=== PATIENT | female | born 1990 | race Caucasian/White ===

== ENCOUNTER 2019-06-13 09:28 | Outpatient (CLI) | payer OTHER ==
[2019-06-13 10:31] VITALS: BP 110/67
--- NOTE | 2019-06-13 12:26 | Ultrasound Report ---
US OB bpp ea add exam, US OB limited INDICATION / CLINICAL INFORMATION: Vagnial spotting. COMPARISON: None available. FINDINGS: Single, viable intrauterine in cephalic presentation. heart rate 125. Placenta is anterior and free of the cervical os. Amniotic fluid volume is normal, with a fluid index of 7 cm. Biophysical profile score: breathing movements: 2 movements: 2 posture and tone: 2 Amniotic fluid volume: 2 Total BPP score: 8/8 IMPRESSION: 1. Viable intrauterine with biophysical profile score of 8. 2. No placental abnormalities identified. Signer Name: Kody Mathew MD Signed: 06/13/2019 12:21 PM Workstation Name: [id number]
== END 2019-06-13 12:43 | disposition home or self-care (01) ==
LOC: TRG 09:28
PROVIDERS: ATTEND Obstetrics & Gynecology
DX: O26.853 Spotting complicating pregnancy, third trimester (principal); Z3A.34 34 weeks gestation of pregnancy
CPT/HCPCS: 59025; 76815; 76819

== ENCOUNTER 2019-07-01 04:29 | Inpatient (IN) | payer OTHER ==
[2019-07-01] MEDS ORDERED: fentaNYL 100 MCG/2 ML INJ ONE (05:00)
[2019-07-01 05:29] LABS: Hematocrit 39.6 % (30.3-42.9); Hemoglobin 13.1 gm/dl (10.1-14.3); Mean Corpuscular HGB Conc 33 % (30-34); Mean Corpuscular Volume 89 fl (79-97); Platelet Count 202 K/mm3 (140-440); Red Blood Count 4.44 M/mm3 (3.65-5.03); Red Cell Distribution Width 13.3 % (13.2-15.2)
[2019-07-01] MEDS ORDERED: ONDANSETRON 4 MG/2 ML INJ IV PRN (05:52)
[2019-07-01] MEDS ORDERED: MAGNESIUM HYDROXIDE (MOM) ORAL LIQD UDC PO PRN (05:52)
[2019-07-01] MEDS ORDERED: PROMETHAZINE 25 MG RECT SUPP PR PRN (05:52)
[2019-07-01] MEDS ORDERED: WITCH HAZEL/ GLYCERIN PAD TP PRN (05:52)
[2019-07-01] MEDS ORDERED: PROMETHAZINE 25 MG TAB PO PRN (05:52)
[2019-07-01] MEDS ORDERED: diphenhydrAMINE 25 MG CAP PO PRN (05:52)
[2019-07-01] MEDS ORDERED: LANOLIN/ZINC/DIMETHICONE (LANSINOH) 7 GM TP PRN (05:52)
[2019-07-01] MEDS ORDERED: OXYTOCIN 10 UNIT/1 ML INJ IM ONE ×2 (05:55→06:04)
[2019-07-01] MEDS ORDERED: fentaNYL 100 MCG/2 ML INJ IV ONE (06:03)
--- NOTE | 2019-07-01 06:05 | Procedure Note ---
OB Delivery Note - Delivery Date of Delivery: 07/01/19 (0421, delivered in triage) Surgeon: MEENU KIMBLE (JAGDISH) Estimated blood loss: 200cc - Vaginal Delivery presentation: vertex Delivery position: OA Intrapartum events: precipitous labor- <3hr Delivery induction: other (SROM @ 0030 per pt) Delivery monitor: none Route of delivery: Delivery placenta: spontaneous (0438, price) Delivery cord: 3 umbilical vessels Episiotomy: none Delivery laceration: none Anesthesia: none Delivery comments: in triage dept with RN. Cord was previously double clamped and cut prior to being transferred to L & D room. Cord blood collected. Placenta spontaneously delivered, dee by myself, disposed per hospital policy. Fundus firm @ U -1, hemostasis maintained. Perineum intact. Baby being assessed by [facility] team. Mother stable and safe. - A at 1 minute: 8 at 5 minutes: 9 Infant Gender: Male (Weight: 2415 gms (5lbs 5 ozs) 18.5 inches)
--- NOTE | 2019-07-01 06:19 | History and Physical Report ---
History of Present Illness Date of examination: 07/01/19 Date of admission: 07/01/19 04:29 Chief complaint: Precipitous delivery History of present illness: 29 yo, presents to [facility] in active labor with advanced cervical dilation, went on to spontaneously deliver a viable male in triage dept. She reports that her water broke this am at 0030. She reports + FM. Denies any VB. She states she has received care at [facility] throughout her without complications. She did not present with any records. Past History - Obstetrical History : 2 Medications and Allergies Allergies Allergy/AdvReac Type Severity Reaction Status Date / Time No Known Allergies Allergy Unverified 06/13/19 10:39 Active Meds: Active Medications Bisacodyl (Dulcolax) 10 mg [place] BID PRN PRN Reason: Constipation Diphenhydramine HCl (Benadryl) 25 mg PO Q6H PRN PRN Reason: Itching Fentanyl (Sublimaze) 100 mcg IV ONCE ONE Stop: 07/01/19 06:04 Ferrous Sulfate (Feosol) 325 mg PO BID TICO Ibuprofen (Ibuprofen) 600 mg PO Q6H TICO Magnesium Hydroxide (Milk Of Magnesia) 30 ml PO HS PRN PRN Reason: Constipation Multi-Ingredient Ointment (Lansinoh) 1 applic TP PRN PRN PRN Reason: Sore Nipples Multivitamins/Iron/Calcium ( Vitamin) 1 each PO QDAY TICO Ondansetron HCl (Zofran) 4 mg IV Q8H PRN PRN Reason: Nausea And Vomiting Oxycodone/Acetaminophen (Percocet 5/325) 1 tab PO Q6H PRN PRN Reason: Pain, Moderate (4-6) Oxytocin (Pitocin) 10 unit IM ONCE ONE Stop: 07/01/19 06:05 Promethazine HCl (Phenergan) 25 mg [place] Q6H PRN PRN Reason: Nausea And Vomiting Promethazine HCl (Phenergan) 25 mg PO Q6H PRN PRN Reason: Nausea And Vomiting Sodium Chloride (Sodium Chloride Flush Syringe 10 Ml) 10 ml IV PRN NR Stop: 07/02/19 05:59 Witch Bibi/Glycerin (Tucks Pad) 1 each TP PRN PRN PRN Reason: Hemorrhoid/cleansing/soothing Review of Systems All systems: negative Genitourinary: contractions - Vital Signs Vital signs: Vital Signs Resp 18 07/01/19 05:00 Temp Pulse Resp BP Pulse Ox 98.3 F 76 18 134/71 07/01/19 05:45 07/01/19 06:12 07/01/19 05:45 07/01/19 06:12 - Physical Exam Breasts: Positive: normal Cardiovascular: Regular rate Lungs: Positive: Normal air movement Abdomen: Positive: soft Genitourinary (Female): Positive: normal external genitalia, normal perenium Uterus: Positive: other (firm, U -1) Anus/Rectum: Positive: normal perianal skin Extremities: Positive: normal Results Result Diagrams: 07/01/19 05:00 Abnormal lab results 07/01/19 Range/Units 05:00 WBC 14.6 H (4.5-11.0) K/mm3 All other labs normal. Assessment and Plan - Patient Problems (1) (normal spontaneous vaginal delivery) Current Visit: Yes Status: Acute Plan to address problem: Admit to L & D workup labs Tranfer to PP with routine orders (2) GBS screening not performed Current Visit: Yes Status: Acute Plan to address problem: Advise Peds team
[2019-07-01] MEDS ORDERED: METHYLERGONOVINE MALEATE 0.2 MG/ML VIAL IM ONE (06:20)
[2019-07-01] MEDS ORDERED: OXYTOCIN 20 UNIT/1000ML DRIP 20 UNITS/1,000 ML BAG IV SCH (07:00)
[2019-07-01] MEDS ORDERED: OXYTOCIN 20 UNIT/1000ML DRIP 20,000 MILLIUNITS/1,000 ML BAG IV ONE (07:03)
[2019-07-01] MEDS: oxyCODONE /ACETAMINOPHEN 5-325MG TAB PO PRN ×2 (09:10→16:21)
[2019-07-01] MEDS: PRENATAL VIT27-FE FUMARATE-FOLIC ACID VIT TAB PO SCH (09:10)
[2019-07-01] MEDS: FERROUS SULFATE 325 MG TAB PO SCH ×2 (09:10→22:14)
[2019-07-01] MEDS: IBUPROFEN 600 MG TAB PO SCH ×3 (12:00→22:14)
[2019-07-01 19:50] LABS: Hematocrit 33.1 % (30.3-42.9); Hemoglobin 11.2 gm/dl (10.1-14.3)
[2019-07-02] MEDS: IBUPROFEN 600 MG TAB PO SCH ×4 (05:19→23:19)
[2019-07-02] MEDS: FERROUS SULFATE 325 MG TAB PO SCH ×2 (09:54→21:35)
[2019-07-02] MEDS: PRENATAL VIT27-FE FUMARATE-FOLIC ACID VIT TAB PO SCH (09:54)
--- NOTE | 2019-07-02 10:51 | Progress Note ---
Assessment and Plan A: PP Day #1 Stable P: Follow Routine Orders D/C Home in the AM RTO in the 6 Weeks Subjective - Subjective Date of service: 07/02/19 Patient reports: appetite normal, voiding normally, pain well controlled, flatus, ambulating normally [place]: doing well, bottle feeding Objective - Vital Signs Latest vital signs: Vital Signs Temp Pulse Resp BP Pulse Ox 07/02/19 07:59 98.2 F 71 16 117/61 97 07/02/19 00:48 98.9 F 76 18 107/58 98 07/01/19 16:47 98.0 F 80 18 126/80 97 07/01/19 11:48 97.9 F 70 18 136/65 99 Intake and Output 07/01/19 07/02/19 07/02/19 22:59 06:59 14:59 Intake Total 240 240 Output Total 1800 Balance -1560 240 Intake: Intake, Free Water 240 240 Output: Urine 1800 Void 1800 Other: Total, Output Amount 800 # Voids Void 3 2 - Exam Breasts: Present: normal Cardiovascular: Present: Regular rate Lungs: Present: Clear to auscultation, Normal air movement Abdomen: Present: normal appearance, soft, normal bowel sounds Uterus: Present: normal, firm, fundal height below umbilicus Extremities: Present: normal
--- NOTE | 2019-07-02 10:52 | Discharge Summary ---
Providers - Providers Date of Admission: 07/01/19 04:29 Date of discharge: 07/03/19 Attending physician: LISA LOGAN MD Primary care physician: LISA LOGAN MD Hospitalization Reason for admission: active labor Delivery: Episiotomy: none Laceration: none Other procedures: none complications: none Discharge diagnosis: IUP at term delivered baby: male Condition at discharge: Good Disposition: DC-01 TO HOME OR SELFCARE Plan - Provider Discharge Summary Activity: routine, no sex for 6 weeks, no heavy lifting 4 weeks, no strenuous exercise Diet: routine Instructions: routine Additional instructions: [] Smoking cessation referral if applicable(refer to patient education folder for contact #) [] Refer to [facility] Booklet Call your doctor immediately for: * Fever > 100.5 * Heavy vaginal bleeding ( >1 pad per hour) * Severe persistent headache * Shortness of breath * Reddened, hot, painful area to leg or breast * Drainage or odor from incision. * Keep incision clean and dry at all times and follow doctor's instructions regarding bathing/showering - Follow up plan Follow up: LISA LOGAN MD [Primary Care Provider] - 6 Weeks
[2019-07-03] MEDS: IBUPROFEN 600 MG TAB PO SCH (05:32)
[2019-07-03 08:46] VITALS: BP 112/66
[2019-07-03] MEDS: FERROUS SULFATE 325 MG TAB PO SCH (10:32)
[2019-07-03] MEDS: PRENATAL VIT27-FE FUMARATE-FOLIC ACID VIT TAB PO SCH (10:32)
== END 2019-07-03 14:00 | disposition home or self-care (01) | DRG 807 ==
LOC: LD 04:29 → OB 07:41
PROVIDERS: ADMIT Obstetrics & Gynecology; ATTEND Obstetrics & Gynecology
PROC: 10E0XZZ Delivery of Products of Conception, External Approach (ICD-10-PCS; principal; 2019-07-01)
DX: O80 Encounter for full-term uncomplicated delivery (principal); Z37.0 Single live birth; Z79.899 Other long term (current) drug therapy; Z3A.33 33 weeks gestation of pregnancy
CPT/HCPCS: 36415; 85014; 85018; 85027; 86592; 86706; 86762; 86850; 86900; 86901; 87806; G0378; J2590; J3010